=== PATIENT | male | born 1975 | race Caucasian/White ===

== ENCOUNTER 2018-01-25 18:14 | Emergency (ER) | payer OTHER ==
[~2018-01-25] VITALS: Ht 174 cm; Wt 81.6 kg
[~2018-01-25 18:14] MED LIST: ANTIVERT 25 MG25 MG PO; MEDROL4 M2 PO
[2018-01-25 18:41] VITALS: BP 152/87
--- NOTE | 2018-01-25 18:43 | ED UPPER/LOWER EXTREMITY COMPL ---
History of Present Illness General Chief Complaint: Foot or Ankle Injury Stated Complaint: R FT INJURY Source: patient Exam Limitations: no limitations Vital Signs & Intake/Output Vital Signs & Intake/Output Vital Signs Date Time Temp Pulse Resp B/P B/P Pulse O2 O2 Flow FiO2 Mean Ox Delivery Rate 01/25 1841 98.0 110 18 152/87 98 Room Air Room Air Allergies Coded Allergies: NO KNOWN ALLERGIES (04/23/14) Reconcile Medications Methylprednisolone. (Medrol) 4 MG TAB.DS.PK 1 DP PO AD low back pain 6 on day 1 then reduce by one tablet daily until gone Triage Nurses Notes Reviewed? yes Onset: Abrupt Duration: day(s):, constant Timing: recent history Pain/Injury Location: Right: Knee, Foot. Method of Injury: fall No Modifying Factors: none HPI: 42-year-old male comes into the emergency room with right knee pain and right foot pain. Patient reports that he was about to go down his stairs at home when his dog ran in front of him and tripped him and he fell down the flight of stairs. He injured his right knee and right foot. He denies hitting his head. He denies any neck pain extremity injury or chest pain or abdominal pain or difficulty breathing. Denies any neck pain. Comes in for further evaluation. (Kendrick Mack) Past History Travel History Traveled to [place] past 21 day No Medical History Any Pertinent Medical History? see below for history Neurological: NONE EENT: NONE Cardiovascular: NONE Respiratory: NONE Gastrointestinal: NONE Hepatic: NONE Renal: NONE Musculoskeletal: NONE Psychiatric: NONE Endocrine: NONE Blood Disorders: NONE Cancer(s): NONE FEATHER WASHER/Reproductive: NONE Surgical History Surgical History: none Psychosocial History What is your primary language Tunisian Family History Hx Contributory? No (Kendrick Mack) Review of Systems Review of Systems Constitutional: Reports: no symptoms. EENTM: Reports: no symptoms. Respiratory: Reports: no symptoms. Cardiovascular: Reports: no symptoms. Gastrointestinal/Abdominal: Reports: no symptoms. Genitourinary: Reports: no symptoms. Musculoskeletal: Reports: see HPI. Skin: Reports: no symptoms. Neurological/Psychological: Reports: no symptoms. Hematologic/Endocrine: Reports: no symptoms. Immunological: Reports: no symptoms. All Other Systems: Reviewed and Negative (Kendrick Mack) Physical Exam Physical Exam General Appearance: well developed/nourished, mild distress Head: atraumatic Eyes: Bilateral: normal appearance, EOMI. Ears, Nose, Throat: normal ENT inspection, hearing grossly normal Neck: normal inspection, full range of motion Cardiovascular/Respiratory: no respiratory distress Back: normal inspection Knee Right: soft tissue tenderness, limited range of motion, SKIN ABRASION, APPROXIMATELY 3 CM, Foot Right: limited range of motion, soft tissue tenderness, swelling Neurologic/Tendon: normal sensation, normal motor functions, normal tendon functions, responds to pain, no evidence tendon injury, no pulse deficit Skin: intact, normal color, warm/dry (Hiren SAPP,Kendrick) Progress Differential Diagnosis: contusion, dislocation, fracture, septic arthritis, sprain, tendon injury Plan of Care: Orders Procedure Date/time Status XRY-KNEE COMPLETE RIGHT 01/25 1842 Active XRY-FOOT COMPLETE, RIGHT 01/25 1842 Active Current Medications Sig/Melly Start time Last Medication Dose Stop Time Status Admin Tetanus/Diphtheria 0.5 ML ONCE ONE 01/25 1845 UNVr Toxoids Adsorbed 01/25 1846 (Decavac) Diagnostic Imaging: Viewed by Me: Radiology Read. Discussed w/RAD: Radiology Read. Radiology Impression: PATIENT: JOHN PEPPER PRESENT AGE: 42 PATIENT ACCOUNT NO: [id number] : 75 LOCATION: [facility] ORDERING PHYSICIAN: Kendrick SAPP SERVICE DATE: 01/25/18 EXAM TYPE : RAD - XRY-FOOT COMPLETE, R; XRY-KNEE COMPLETE RIGHT EXAMINATION: RIGHT KNEE 3 VIEWS CLINICAL INFORMATION: Pain after fall. COMPARISON: None. TECHNIQUE: AP, lateral, oblique views of the right knee were obtained. FINDINGS: There are no fractures or dislocations. There is no knee joint effusion. There is soft tissue swelling anterior to the patella. IMPRESSION: No fracture or joint effusion. Soft tissue swelling overlying the patella. EXAMINATION: RIGHT FOOT 3 VIEWS CLINICAL INFORMATION: Pain. COMPARISON: None. TECHNIQUE: AP, lateral, oblique views of the right foot were obtained. FINDINGS: There are no fractures or dislocations. There is no significant soft tissue swelling. No ankle joint effusion is identified. IMPRESSION: Unremarkable right foot radiographs. DICTATED BY: Massimo Le MD DATE/TIME DICTATED:01/25/181920 DIRECTOR OF REVENUE:SALVADOR DATE/TIME TRANSCRIBED:01/25/181920 CONFIDENTIAL, DO NOT COPY WITHOUT APPROPRIATE AUTHORIZATION. <Electronically signed in Other Vendor System> SIGNED BY: Massimo Le MD 01/25/181924 (Kendrick Mack) Departure Departure Disposition: HOME OR SELF CARE Condition: Stable Clinical Impression Primary Impression: Contusion of right knee Secondary Impressions: Abrasion, Right foot sprain Referrals: Michael BHATT,Rod Dunn Additional Instructions: Ibuprofen as needed for pain. Follow-up with primary care doctor. Return if any concerns worsening symptoms. Please go over all results of today's visit with your primary care doctor. Contact your primary care doctor to let them know you were here in the emergency room. There may be nonspecific findings which may not be related to your visit today here in the emergency room but may require further evaluation and chronic monitoring by your primary care doctor. If you had a laceration today the chance of foreign body always remains. You should follow-up with your primary care doctor for recheck in 3-5 days for a wound check. If you had an x-ray done there is a chance that a fracture could have been missed on initial read and you should follow-up with your primary care doctor for repeat x-rays if symptoms persist. If your blood pressure was elevated here in the emergency room please have rechecked by [facility] primary care doctor within the next 48. If you were prescribed a narcotic here in the emergency room or any type of controlled substances you're not allowed to drive while taking this medication or operate any type of heavy machinery. Narcotics can make you feel lightheaded dizziness nausea and can cause constipation. You may need to machine operator picker a stool softener. Thank you for choosing [facility] emergency room. Please return to the emergency room immediately if you have any other concerns worsening of symptoms. Departure Forms: Customer Survey General Discharge Information Comments 01/25/2018 9:24:32 PM Patient clinically looks well. In no evidence of acute fracture. No signs of trauma anywhere else on the body. He clinically looks well. He declined any crutches here in the emergency room. He will follow-up with his PCP and orthopedic doctor as needed. Return if any other concerns. (Kendrick Mack) PA/PHYSICAL THERAPY AIDES TEACHER Co-Sign Statement Statement: ED Attending supervision documentation- I saw and evaluated the patient. I have also reviewed all the pertinent lab results and diagnostic results. I agree with the findings and the plan of care as documented in the PA's/PHYSICAL THERAPY AIDES TEACHER's documentation. x I have reviewed the ED Record and agree with the PA's/PHYSICAL THERAPY AIDES TEACHER's documentation. [] Additions or exceptions (if any) to the PAs/PHYSICAL THERAPY AIDES TEACHER's note and plan are summarized below: [] (Kwesi BHATT,Martell)
--- NOTE | 2018-01-25 19:25 | RADIOLOGY REPORT ---
EXAMINATION: RIGHT KNEE 3 VIEWS CLINICAL INFORMATION: Pain after fall. COMPARISON: None. TECHNIQUE: AP, lateral, oblique views of the right knee were obtained. FINDINGS: There are no fractures or dislocations. There is no knee joint effusion. There is soft tissue swelling anterior to the patella. IMPRESSION: No fracture or joint effusion. Soft tissue swelling overlying the patella. EXAMINATION: RIGHT FOOT 3 VIEWS CLINICAL INFORMATION: Pain. COMPARISON: None. TECHNIQUE: AP, lateral, oblique views of the right foot were obtained. FINDINGS: There are no fractures or dislocations. There is no significant soft tissue swelling. No ankle joint effusion is identified. IMPRESSION: Unremarkable right foot radiographs.
== END 2018-01-25 20:07 ==
LOC: ERH 18:14
DX: S80.01XA Contusion of right knee, initial encounter (principal); S93.601A Unspecified sprain of right foot, initial encounter; S80.211A Abrasion, right knee, initial encounter; W10.9XXA Fall (on) (from) unspecified stairs and steps, initial encounter; Y92.009 Unspecified place in unspecified non-institutional (private) residence as the place of occurrence of the external cause
CPT/HCPCS: 73562-RT; 73630-RT; 90471; 90714